=== PATIENT | male | born 1995 | race Caucasian/White ===

== ENCOUNTER 2025-04-17 14:19 | Emergency (ER) | payer MEDICAID ==
[~2025-04-17] VITALS: Ht 182.9 cm; Wt 86.3 kg
[2025-04-17 14:31] VITALS: BP 140/81; PULSE 80; RESP 16; TEMP 98; O2SAT 100
[2025-04-17 15:00] LABS: BILIRUBIN,URINE NEGATIVE (Neg); CLARITY,URINE CLEAR (Clear); COLOR,URINE YELLOW (Yellow); GLUCOSE, URINE >=1000 mg/dl (Neg); KETONES,URINE NEGATIVE (Neg); LEUKOCYTE ESTERASE ,URINE NEGATIVE (Neg); NITRITES, URINE NEGATIVE (Neg); OCCULT BLOOD,URINE NEGATIVE (Neg); PROTEIN,URINE NEGATIVE (Neg); UROBILINOGEN,URINE 0.2 E.U/dL (0.2-1.0)
[2025-04-17 15:05] LABS: UA COLLECTION TYPE CLN CATCH MIDSTREAM
[2025-04-17 15:06] LABS: BACTERIA,URINE NONE SEEN /HPF (Neg); MUCUS STRANDS NONE SEEN /LPF (Neg); RBC,URINE NONE SEEN /HPF (0-2); SQUAMOUS EPITHELIAL CELL,UR NONE SEEN /LPF (FEW); WBC,URINE 0-4 /HPF (0-4)
--- NOTE | 2025-04-17 16:34 | Physician Documentation ---
History of Present Illness ~ Chief Complaint: Urinary Symptoms Stated Complaint: REQUESTING E COLI TEST Time Seen by MD: 14:58 HPI 50-year-old male reports ER for urinalysis. Patient states he has a girlfriend is in the hospital for positive E coli culture of her urine and he is concerned and he is reporting to the ER. Denies dysuria hematuria. Denies fevers or chills. Denies back pain. No other complaints at this time Medication Reconciliation Allergies: Coded Allergies: No Known Allergies (Unverified , 04/17/25) Physical Exam Vital Signs: Temperature: 98.0, Source: Oral, Heart Rate: 80, Respiratory Rate: 16, BP: 140/81, Pulse Oximetry: 100, Weight: 86.300 Oxygen Flow Rate: 0 Physical Exam General: Well developed, well nourished, no distress. HEENT: Atraumatic, normal conjunctiva, moist mucous membranes. Neck: Full range of motion, supple. Respiratory: Lungs clear, no respiratory distress. Chest: No accessory muscle use, nontender. Cardiovascular: Regular rate and rhythm. Gastrointestinal: Soft, nontender, nondistended. Bowel sounds present. Extremities: Normal range of motion, nontender, normal capillary refill, no deformity. Back: No midline tenderness, no CVA tenderness. Neurologic: Oriented x4. Distal gross motor and sensory intact all four extremities. Moves all 4 extremities spontaneously. Psychiatric: Normal mood and affect. Skin: Normal color, warm and dry. No edema, no ecchymosis Progress Results/Orders Results/Orders Vital Signs 04/17/25 14:31 Temp 98.0 Pulse 80 Resp 16 B/P (MAP) 140/81 Pulse Ox 100 O2 Flow Rate 0 Laboratory Tests Test 04/17/25 14:33 Urine Specimen Description Cln catch midstream Urine Color Yellow Urine Clarity Clear Urine pH 6.0 Urine Specific Julian 1.025 Urine Protein Negative Urine Glucose (UA) >=1000 H Urine Ketones Negative Urine Occult Blood Negative Urine Nitrite Negative Urine Bilirubin Negative Urine Urobilinogen 0.2 Urine Leukocyte Esterase Negative Urine RBC None seen Urine WBC 0-4 Urine Squamous Epithelial Cells None seen Urine Bacteria None seen Urine Mucus None seen Urine Culture Indicated Not ind Volume Urine Centrifuged 10 ml Urine Comment Medical Decision Making Additional info obtained from: old records Findings After detailed discussion and joint medical decision-making, diagnostic and imaging results were discussed with the patient. At this time patient we will now be given medication but patient does not have evidence of UTI and patient is discharge. ER precautions were given. Patient is stable upon discharge. All patient questions answered to satisfaction Urinary Diff Dx:Considerations: Include: Urethritis, Urinary retention, UTI Departure Disposition: HOME / SELF CARE / HOMELESS Impression: Primary Impression: Urine discoloration Additional Impression: Encounter for medical screening examination Condition: Stable Discharge Instructions: Acute Urinary Retention, Male, Dysuria, Urinary Tract Infection, Adult Referrals: NO PRIMARY CARE PROVIDER (PCP) Education Educated: Patient Educated regarding: diagnosis, treatment Signature Scribe Signature: none used Attestation: Scribed for Wm Penn Pa by Wm SMITH . 04/17/25 16:33 WM PENN April 17, 2025 16:34
== END 2025-04-17 16:41 | disposition home or self-care (01) ==
LOC: ER 14:20
DX: R82.998 Other abnormal findings in urine (principal)
CPT/HCPCS: 81001; 99283